=== PATIENT | female | born 1940 | race Caucasian/White ===

== ENCOUNTER 2018-02-22 16:29 | Observation (INO) | payer MEDICARE, OTHER ==
[~2018-02-22] VITALS: Ht 152.4 cm; Wt 117.9 kg
[~2018-02-22 16:29] MED LIST changes: -GLUC-139 PO
[2018-02-22] MEDS ORDERED: IBUP-56 PO (16:56)
[2018-02-22] MEDS ORDERED: GLUC-139 PO (16:56)
[2018-02-22 17:13] VITALS: BP 192/90
[2018-02-22] MEDS ORDERED: ACETAMINOPHEN 325 MG TAB PO PRN (17:25)
[2018-02-22] MEDS ORDERED: ALBUTEROL SULFATE 90 MCG/ACT 8.5 GM HNH INH PRN (17:25)
--- NOTE | 2018-02-22 18:01 | History & Physical ---
History of Present Illness Chief Complaint "I get worn out" History of Present Illness 77yo female with PMHx significant for long-standing oxygen dependent COPD, HTN, type 2 DM, chronic lower extremity edema, untreated severe KAUR. She reports increasing dyspnea on exertion over past several weeks. She has also noted a five pound weight gain and increasing lower extremity edema. She denies any CP or palpitations. She denies orthopnea/PND. She denies any fevers or chills. She has had some occasional cough, but no sputum production. She has been seen in the outpatient frequently regarding her BP control. Her lisinopril dose has recently been modified. She is also on carvedilol 12.5mg BID and Edecrin 100mg daily. She has had adverse reaction to multiple medications. She was seen in the clinic again today and found to be significantly hypertensive. She was also found to have an elevated BNP. She was recommended for admission. History Problems: (1) History of knee replacement Status: Resolved (2) Venous ulcer of both lower extremities with varicose veins Status: Resolved (3) Hypertension Status: Chronic (4) Pneumonia Status: Resolved (5) Urinary incontinence Status: Chronic (6) Hearing loss Status: Chronic (7) Arthritis Status: Chronic (8) Hypoxemia Status: Chronic (9) Glaucoma Status: Chronic (10) Obesity Status: Chronic (11) Brain aneurysm Status: Chronic (12) History of melanoma Status: Chronic (13) Traumatic hematoma of left knee Status: Resolved (14) COPD (chronic obstructive pulmonary disease) Status: Chronic (15) Type II diabetes mellitus Status: Chronic (16) Edema Status: Chronic (17) S/P lumbar fusion Status: Chronic (18) History of cataract extraction Status: Chronic (19) History of shoulder surgery Status: Chronic (20) History of cornea transplant Status: Chronic (21) History of hysterectomy for cancer Status: Chronic Home Meds Active Scripts Lisinopril (LISINOPRIL) 40 Mg Tablet, 1 TAB PO QDAY, #90 TAB 0 Refills Prov:PEACE RUDD APRN PUMP OPERATOR-C 02/15/18 Ethacrynic Acid (EDECRIN) 25 Mg Tablet, 4 TAB PO DAILY, #360 TAB 4 Refills Prov:PEACE RUDD APRN PUMP OPERATOR-C 01/29/18 Metformin Hcl (METFORMIN HCL) 500 Mg Tablet, 2 TAB PO QHS, #180 TAB 1 Refill Prov:PEACE RUDD [facility] 11/21/17 Carvedilol (CARVEDILOL) 12.5 Mg Tablet, 1 TAB PO BID, #180 TAB 3 Refills Prov:OJVENKATAPEACE APRN [facility]-C 02/15/17 Albuterol Sulfate (VENTOLIN HFA) 18 Gm Inh, 2 PUFF INH BID Y for shortness of breath, #3 INH 3 Refills Prov:PEACE RUDD APRN [facility] 03/21/16 Reported Medications Ibuprofen (IBUPROFEN) 200 Mg Tablet, 2 TAB PO QAM, TAB 02/22/18 Gluc Hcl/Csa/Fariha Hy/Hyalur Ac (GLUCOSAMINE CHONDROITIN CAP) 1 Each Capsule, 1 EACH PO QDAY, CAPSULE 02/22/18 Umeclidinium Brm/Vilanterol Tr (Anoro Ellipta 62.5-25 Mcg INH) 1 Each Disk.w.dev , 1 INH INH BID 10/19/17 Magnesium Oxide (MAGNESIUM OXIDE) 400 Mg Tablet, 250 MG PO BID 05/25/17 Calcium Carbonate/Vitamin D3 (CALCIUM + VITAMIN D TABLET) 1 Each Tablet, 1 TAB PO QDAY 07/21/15 Multivitamins,Therapeutic (THERA-TABS) 1 Each Tablet, 1 TAB PO QDAY 06/17/15 Fluorometholone (FLUOROMETHOLONE) 5 Ml Drops.susp, 1 GTT OU QDAY once a day 08/06/14 Timolol Maleate (TIMOLOL MALEATE) 10 Ml Drops, 1 GTT OU BID 07/28/14 Discontinued Scripts Lisinopril (LISINOPRIL) 20 Mg Tablet, 1 TAB PO QDAY, #90 TAB 3 Refills Prov:OJ-PEACE JUSTICE APRN [facility] 02/15/17 Allergies: Coded Allergies: Sulfa (Sulfonamide Antibiotics) (Verified Allergy, Severe, HIVES, 03/22/17) cephalexin (Verified Allergy, Severe, HIVES, 03/22/17) clavulanic acid (Verified Allergy, Severe, NAUSEA/VOMITING, 03/22/17) clindamycin (Verified Allergy, Intermediate, rash and itching, 03/22/17) furosemide (Verified Allergy, Intermediate, HIVES, 03/22/17) hydrochlorothiazide (Verified Allergy, Mild, RASH, 03/22/17) tolterodine (Verified Allergy, Unknown, rash and hives, 03/22/17) amlodipine (Verified Adverse Reaction, Intermediate, 03/22/17) severe peripheral edema spironolactone (Verified Adverse Reaction, Intermediate, 03/22/17) hyperkalemia Patient History: FH: HTN (hypertension) BROTHER OR SISTER, Age:78 BROTHER OR SISTER, Age:79 BROTHER OR SISTER, Age:59 FH: HTN (hypertension) BROTHER OR SISTER, Age:78 BROTHER OR SISTER, Age:79 BROTHER OR SISTER, Age:59 FH: congestive heart failure BROTHER OR SISTER, Age:78 FH: diabetes mellitus MOTHER, , Age:88 FH: obesity BROTHER OR SISTER, Age:78 BROTHER OR SISTER, Age:79 BROTHER OR SISTER, Age:59 Other Social/Family Hx She is and lives alone Hx Smoking: Yes (Quit in 2003, 11/07 PPD) Smoking Status: Former Smoker Exposure to Second Hand Smoke?: No Caffeine Intake: Coffee Caffeine/Cups Per Day: 4 CUPS PER DAY Hx Alcohol Use: Yes Hx Substance Use Disorder: No Social Drug Use: Never Review of Systems Constitutional: Weight Gain, No Fever, No Chills, No Night Sweats Neurological: No Syncope Eyes: No Vision Change, No Loss of Vision ENT: Sinus Congestion, No Hearing Loss Cardiovascular: No Chest Pain, No Palpitations Respiratory: Shortness of Breath, Cough Gastrointestinal: No Nausea, No Vomiting, No Diarrhea, No Hematemesis, No Hematochezia, No Melena, No Abdominal Pain Genitourinary: No Dysuria Musculoskeletal: Pain, Impaired Mobility Psychiatric: No Depression Exam Vital Signs Vital Signs Date Time Temp Pulse Resp B/P (MAP) Pulse Ox O2 Delivery O2 Flow Rate FiO2 02/22/18 17:13 98.5 60 18 192/90 (124) 100 Nasal Cannula 2.0 General Appearance: Alert, Awake Neuro: No Gross deficits Eyes: PERRLA ENT: Oropharynx Clear Neck: No Masses, Other (short/thick/serna/difficult to assess for JVD) Cardiovascular: Regular Rate and Rhythm (distant tones) Respiratory: Other (decreased breath sounds bilaterally/no rales or wheezes noted) Chest: No Tenderness GI: Abd Soft and Non-Tender (obese) : No CVA Tenderness Lymph: No Adenopathy Extremities: Warm, Perfused, Edema (2+ both LE to just above knees) Integumentary: Generalized Fragile Skin Psych: Alert & Oriented X3 Medical Decision Making Data Points Item Value Date Time Sodium Level 140 mmol/L 02/22/18 1434 Potassium Level 4.6 mmol/L 02/22/18 1434 Chloride Level 103 mmol/L 02/22/18 1434 Carbon Dioxide Level 24 mmol/L 02/22/18 1434 Blood Urea Nitrogen 31 mg/dl H 02/22/18 1434 Creatinine 0.90 mg/dl 02/22/18 1434 Glomerular Filtration Rate Calc > 60.0 02/22/18 1434 Random Glucose 84 mg/dl 02/22/18 1434 Calcium Level 9.6 mg/dl 02/22/18 1434 Magnesium Level 2.1 mg/dl 02/22/18 1434 Total Bilirubin 0.8 mg/dl 02/22/18 1434 Aspartate Amino Transf (AST/SGOT) 36 U/L H 02/22/18 1434 Alanine Aminotransferase (ALT/SGPT) 37 U/L 02/22/18 1434 Alkaline Phosphatase 91 U/L 02/22/18 1434 Total Protein 6.8 gm/dl 02/22/18 1434 Albumin 3.7 g/dl 02/22/18 1434 B-Type Natriuretic Peptide 698 pg/ml H 02/22/18 1434 White Blood Count 8.0 k/uL 02/22/18 1434 Hemoglobin 12.8 g/dL 02/22/18 1434 Hematocrit 38.7 % 02/22/18 1434 Platelet Count 188 K/uL 02/22/18 1434 EKG / Imaging Imaging PATIENT NAME: Miriam John : 1940 MR: [id number] V: [id number] EXAM DATE: ORDERING PHYSICIAN: KAROLINE ADAMS TECHNOLOGIST: Location: [facility] - [place] Patient: Miriam John : 1940 Visit/Account:[id number] Date of Sevice: 02/22/2018 Exam type: CHEST PA AND LAT History: increased SOB, decreased stamina, increased O2 Comparison: November 08, 2016. Findings: Chronic interstitial markings are seen throughout the lungs. 1.4 cm nodular density projecting in the left mid to upper lung zone also appears stable. There is no evidence of acute appearing infiltrates , pleural effusions or overt pulmonary edema. There is flattening the hemidiaphragms which can be seen with hyperinflation. Cardiac silhouette is upper limits of normal in size. There are bilateral shoulder arthroplasties. There are postsurgical changes of the lumbar spine which are incompletely imaged. Dense chronic changes also noted in the upper lumbar spine IMPRESSION: 1. Chronic interstitial markings of the lungs 1.4 centers meter nodular density projecting over the left mid to upper lung zone appears stable Flattening the hemidiaphragms consistent with hyperinflation Report Dictated By: Carlyn Malone MD at 02/22/2018 3:34 PM Report E-Signed By: Carlyn Maolne MD at 02/22/2018 3:39 PM WSN:[email or web address] Assessment and Plan Problems: (1) Dyspnea Status: Acute Assessment & Plan: This may be multifactorial. She certainly has underlying COPD, but she does not appear to have an acute exacerbation. She has severe sleep apnea that has not been treated. I suspect she probably has pulmonary HTN at this point. Will check echocardiogram. Will try to initiate CPAP tonight. Will continue supplemental oxygen at 2L and have her increase to 4L with activity. Further evaluation and treatment pending results. (2) Uncontrolled hypertension Status: Acute Assessment & Plan: Her BPs have been significantly more difficult to control. Will continue her carvedilol, lisinopril, and Edecrin. May need to further titrate her doses or add another agent. If she is able to treat her KAUR with CPAP/O2 it may help with control of her BPs as well. Central Venous Access Medical Necessity for Access: IV Access, Medication Administration Copies to: PEACE RUDD APRN PUMP OPERATOR-C Venous Thromboembolism Antithrombotics Is Pt On Any Antithrombotics?: No (CHARLEY hose and ambulation) KELLY SHETTY MD Feb 22, 2018 18:01
[2018-02-22] MEDS ORDERED: INSULIN HUM LISPRO 100 UN/ML 3 ML VIAL SUBQ PRN (18:05)
[2018-02-22 20:25] VITALS: BP 186/59
[2018-02-22] MEDS: LISINOPRIL 20 MG TAB PO SCH (20:40)
[2018-02-22] MEDS: CARVEDILOL 6.25 MG TAB PO SCH (20:40)
[2018-02-22] MEDS: PATIENT'S OWN MED INH SCH (20:40)
[2018-02-22] MEDS: TIMOLOL MAL 0.25% OP SOLN 5 ML OU SCH (20:40)
[2018-02-22] MEDS ORDERED: metFORMIN HCL 500 MG TAB PO SCH (21:00)
[2018-02-23 00:40] VITALS: BP 154/55
[2018-02-23 02:39] VITALS: BP 146/51
[2018-02-23 06:17] LABS: PLATELET COUNT, AUTOMATED 152 K/uL (150-450)
[2018-02-23 07:19] VITALS: BP 148/56
[2018-02-23 07:31] VITALS: Ht 152.4 cm; Wt 117.9 kg
[2018-02-23] MEDS ORDERED: CALCIUM CARBONATE/VITAMIN D3 PO SCH (08:00)
[2018-02-23] MEDS: CARVEDILOL 6.25 MG TAB PO SCH (08:43)
[2018-02-23] MEDS: LISINOPRIL 20 MG TAB PO SCH (08:43)
[2018-02-23] MEDS: TIMOLOL MAL 0.25% OP SOLN 5 ML OU SCH (08:44)
[2018-02-23] MEDS: PATIENT'S OWN MED INH SCH (08:47)
[2018-02-23] MEDS ORDERED: FLUOROMETHOLONE 0.1% OP SUSP OU SCH (09:00)
[2018-02-23] MEDS ORDERED: PATIENT'S OWN MED PO SCH (09:00)
[2018-02-23] MEDS ORDERED: MAGNESIUM OXIDE 400 MG TAB PO SCH (09:00)
--- NOTE | 2018-02-23 09:35 | Hospitalist Depart ---
Discharge Summary Reason for Hosp/Final Diag: (1) Dyspnea Status: Acute Hospital Course & Plan: This may be multifactorial. She certainly has underlying COPD, but she does not appear to have an acute exacerbation. She has severe sleep apnea that has not been treated. Echo shows pulmonary HTN with EF 61%. We will order for her to have CPAP at home. Will continue supplemental oxygen and have her increase to 4L with activity. (2) Uncontrolled hypertension Status: Acute Hospital Course & Plan: Will continue her carvedilol, lisinopril, and Edecrin. Her blood pressure did not require any changes during admission. If she is able to treat her KAUR with CPAP/O2 it may help with control of her BPs as well. Departure Latest Vital Signs Vital Signs 02/23/18 02/23/18 02/23/18 00:45 07:19 08:00 Temp 98.2 Pulse 67 Resp 20 B/P (MAP) 148/56 (86) Pulse Ox 94 O2 Delivery Nasal Cannula O2 Flow Rate 2.0 FiO2 30.0 Weight (Pounds): 260 Result Diagram: 02/23/18 0514 02/23/18 0514 Condition: Improved Discharge: Home, Self Care Discharge Instructions Home Meds Active Scripts Lisinopril (LISINOPRIL) 40 Mg Tablet, 1 TAB PO QDAY, #90 TAB 0 Refills Prov:PEACE RUDD APRN-C 02/15/18 Ethacrynic Acid (EDECRIN) 25 Mg Tablet, 4 TAB PO DAILY, #360 TAB 4 Refills Prov:PEACE RUDD APRN-C 01/29/18 Metformin Hcl (METFORMIN HCL) 500 Mg Tablet, 2 TAB PO QHS, #180 TAB 1 Refill Prov:PEACE RUDD APRNP-C 11/21/17 Carvedilol (CARVEDILOL) 12.5 Mg Tablet, 1 TAB PO BID, #180 TAB 3 Refills Prov:PEACE RUDD APRN-C 02/15/17 Albuterol Sulfate (VENTOLIN HFA) 18 Gm Inh, 2 PUFF INH BID Y for shortness of breath, #3 INH 3 Refills Prov:PEACE RUDD APRNP-C 03/21/16 Reported Medications Ibuprofen (IBUPROFEN) 200 Mg Tablet, 2 TAB PO QAM, TAB 02/22/18 Gluc Hcl/Csa/Fariha Hy/Hyalur Ac (GLUCOSAMINE CHONDROITIN CAP) 1 Each Capsule, 1 EACH PO QDAY, CAPSULE 02/22/18 Umeclidinium Brm/Vilanterol Tr (Anoro Ellipta 62.5-25 Mcg INH) 1 Each Disk.w.dev , 1 INH INH BID 10/19/17 Magnesium Oxide (MAGNESIUM OXIDE) 400 Mg Tablet, 250 MG PO BID 05/25/17 Calcium Carbonate/Vitamin D3 (CALCIUM + VITAMIN D TABLET) 1 Each Tablet, 1 TAB PO QDAY 07/21/15 Multivitamins,Therapeutic (THERA-TABS) 1 Each Tablet, 1 TAB PO QDAY 06/17/15 Fluorometholone (FLUOROMETHOLONE) 5 Ml Drops.susp, 1 GTT OU QDAY once a day 08/06/14 Timolol Maleate (TIMOLOL MALEATE) 10 Ml Drops, 1 GTT OU BID 07/28/14 Diet: Regular Activity: As Tolerated Copies to: PEACE RUDD APRN SCALE RECLAMATION TENDER-C Venous Thromboembolism Antithrombotics Is Pt On Any Antithrombotics?: No (CHARLEY hose and ambulation) SAMIR HOLMAN SCALE RECLAMATION TENDER Feb 23, 2018 09:35
--- NOTE | 2018-02-23 10:17 | RADIOLOGY IMAGING REPORT ---
FACILITY: [facility] PATIENT NAME: AXEL MINAYA : [id number] MR: [id number] V: [id number] EXAM DATE: ORDERING PHYSICIAN: KELLY SHETTY TECHNOLOGIST: Dionne Gonzalez EXAMINATION:TWO-DIMENSIONAL ECHOCARDIOGRAPH REASON:SOB/SUSPECTED PULMONARY HYPERTENSION 2D Measurements (normal values in centimeters) LV endLV endRV endVent.LV PostAorticLeftPercent DiastolicSystolicDiastolicSeptumWallRootAtriumShortening (3.5-5.7)(0.9-2.6)(0.6-1.1)(0.6-1.1)(2.0-3.7)(1.9-4.0)(25-35%) [id number]% STROKE VOLUME: 47ml ESTIMATED EJECTION FRACTION:61% PARASTERNAL LONG AXIS: Overall left ventricular systolic function appears to be normal. There is borderline to mild concentric left ventricular thickening but no evidence for any outflow tract obstruction. The left atrium appears to be enlarged. Right ventricle also appears to be enlarged. Color examination of the revealed some mitral insufficiency as well as some tricuspid insufficiency present. PARASTERNAL SHORT AXIS: Overall left ventricular function again appears to be normal. No wall motion abnormalities are noted. There is mild concentric left ventricular thickening present. The aortic valve is not well seen but it probably is trileaflet in configuration although difficult to tell. Color examination reveals a trace of pulmonic insufficiency. APICAL FOUR AND TWO CHAMBER: Normal left ventricular ejection fraction. Left atrium appears to be enlarged. Right ventricle also appears to be enlarged. Aortic valve area & mitral valve area both measure within normal ranges at 2.9 & 4.2cm2 respectively. The left atrial volume is mild to borderline moderately increased at 32ml/m2. Right atrial volume is upper range of normal at 24ml/m2. The tricuspid regurgitation Vmax measured 3.12m/sec. Color examination of the mitral valve reveals mild amount of mitral insufficiency. Color examination of the tricuspid valve reveals mild amount of tricuspid insufficiency. Color examination of the aortic valve was unremarkable. SUBCOSTAL VIEW: No pericardial effusion was noted. No atrioseptal or ventriculoseptal defects were noted. There is a prominent pericardial fat pad present. Doppler examination of the mitral valve in diastole does reveal the A wave > E wave. IVC is enlarged at 2.93cm. OVERALL IMPRESSION: 1. Normal left ventricular ejection fraction of 61% with a Grade 1/4 decrease in diastolic function. 2. Mild concentric left ventricular thickening. No evidence for any outflow tract obstruction. 3. Mild to moderate right ventricular enlargement & mild to moderate left atrial enlargement. The right atrium is upper range of normal in size. The left ventricle is normal in size. 4. A probable trileaflet aortic valve with no abnormalities noted. 5. A trace of pulmonic insufficiency & a mild amount of mitral & tricuspid insufficiency. The estimated right ventricular systolic pressure is approximately 61mm Hg which does include an estimated right atrial pressure of 15mm Hg indicating severe pulmonary hypertension & increased right ventricular systolic pressures. Dictated by: Irma Henriquez M.D. on 02/22/2018 at 20:15 Transcribed by: JOSE on 02/23/2018 at 7:01 Approved by: Irma Henriquez M.D. on 02/23/2018 at 10:16 [facility]
[2018-02-25] MEDS ORDERED: INFLUENZA VIRUS VAC 0.5 ML SYR IM ONLY ONE (09:00)
== END 2018-02-23 09:28 | disposition home or self-care (01) ==
LOC: INTOOBSV 16:29 → MED 16:29
PROVIDERS: ADMIT Specialist; ATTEND Specialist
DX: I10 Essential (primary) hypertension (principal); R06.00 Dyspnea, unspecified
CPT/HCPCS: 36415; 36416; 82948; 83735; 83880; 84443; 85025; 93306; 94660; A9270; G0378; G0379; J1815; 71046; 82040; 82247; 82310; 82374; 82435; 82565; 82947; 84075; 84132; 84155; 84295; 84450; 84460; 84520

== ENCOUNTER → 2018-02-22 | Outpatient (CLI) | payer MEDICARE, OTHER ==
[2014-08-07 17:08] VITALS: BMI 41.2
[~2018-02-22] MED LIST: ACE500 PO; ALB18R INH; ALIS150T3 PO; AML5 PO; AMLO-104 PO; AMLO-99 PO; AMOX500T10 PO; ASC500 PO; ASPI-1471 PO; ASPI-715 PO; ASPI81TA94 PO; ATEN-1 PO; AZIT-1 PO; AZIT-17 PO; AZIT500T47 PO; BENZ200C15 PO; BIOFLEX; CALC-515 PO; CALC-852 PO; CALC500T76 PO; CALCIUM; CAR6.25 PO; CARV12.578 PO; CARV25TA78 PO; CETI-176 PO; CLIN300C99 PO; CLOB15CR22 TP; CLOT15CR63 TP; CODE118S5 PO; COM14R INH; COMPRESSION STOCKING; DOXY-229 PO; ETHA25TA2 PO; FISH1CAP15 PO; FLUO5DRO8 OP; FLUOD OU; FLUT1DIS28 INH; FURO-45 PO; FURO-47 PO; GLUC-125 PO; GLUC-139 PO; GLUC-178 PO; HYDR-2966 PO; HYDR-385 PO; HYDR473S4 PO; IBU200 PO; IBUP-56 PO; LIDO700A29 TD; LISI-374 PO; LISI20TA29 PO; LISI30TA49 PO; MAGN250T25 PO; MAGN400T36 PO; MELO-207 PO; METF-410 PO; METF-420 PO; METF500T4 PO; MOM PO; MOXOD OD; MULT-1357 PO; MULT-820 PO; NEBI10TA4 PO; OLME40TA17 PO; OXYC20TA86 PO; OXYXL5 PO; PER PO; PIPE3.3714 IV; POTA-23 PO; PRED20TA6 PO; PYRI100T57 PO; SAL50R INH; SPIR25TA78 PO; TIM5OD OD; TIO18R INH; TRAM-420 PO; TRIA15CR40 TP; TURM500C7 PO; UBID100C9 PO; UMEC1DIS INH; VITAMIN C; VITAMIN E; VITE400 PO; [UNRECOGNIZED DRUG - CODE] OU; [UNRECOGNIZED DRUG - CODE] PO; [UNRECOGNIZED DRUG - CODE] PO; [UNRECOGNIZED DRUG - CODE] PO
[2018-02-22 14:46] LABS: PLATELET COUNT, AUTOMATED 188 K/uL (150-450)
--- NOTE | 2018-02-22 15:42 | RADIOLOGY IMAGING REPORT ---
FACILITY: [facility] PATIENT NAME: Miriam John : 1940 MR: [id number] V: [id number] EXAM DATE: ORDERING PHYSICIAN: KAROLINE ADAMS TECHNOLOGIST: Location: [facility] [place] Patient: Miriam John : 1940 Visit/Account:[id number] Date of Sevice: 02/22/2018 Exam type: CHEST PA AND LAT History: increased SOB, decreased stamina, increased O2 Comparison: November 08, 2016. Findings: Chronic interstitial markings are seen throughout the lungs. 1.4 cm nodular density projecting in th e left mid to upper lung zone also appears stable. There is no evidence of acute appearing infiltrat es , pleural effusions or overt pulmonary edema. There is flattening the hemidiaphragms which can be seen with hyperinflation. Cardiac silhouette is upper limits of normal in size. There are bilatera l shoulder arthroplasties. There are postsurgical changes of the lumbar spine which are incompletely imaged. Dense chronic changes also noted in the upper lumbar spine IMPRESSION: 1. Chronic interstitial markings of the lungs 1.4 centers meter nodular density projecting over the left mid to upper lung zone appears stable Flattening the hemidiaphragms consistent with hyperinflation Report Dictated By: Carlyn Malone MD at 02/22/2018 3:34 PM Report E-Signed By: Carlyn Malone MD at 02/22/2018 3:39 PM WSN:[email or web address]
== END ==
LOC: LAB 14:21
PROVIDERS: ATTEND Nurse Practitioner Family
DX: R91.8 Other nonspecific abnormal finding of lung field (principal); J44.9 Chronic obstructive pulmonary disease, unspecified; R68.89 Other general symptoms and signs; R09.89 Other specified symptoms and signs involving the circulatory and respiratory systems
CPT/HCPCS: 36415; 71046; 82040; 82247; 82310; 82374; 82435; 82565; 82947; 83735; 83880; 84075; 84132; 84155; 84295; 84443; 84450; 84460; 84520; 85025

== ENCOUNTER → 2018-03-01 | Outpatient (CLI) | payer MEDICARE, OTHER ==
[2018-02-23 07:31] VITALS: BMI 50.8
[~2018-03-01] MED LIST changes: +GLUC-139 PO; +HYDR10TA20 PO
== END ==
LOC: LAB 08:28
PROVIDERS: ATTEND Nurse Practitioner Family
DX: E11.9 Type 2 diabetes mellitus without complications (principal); I10 Essential (primary) hypertension
CPT/HCPCS: 36415; 82040; 82247; 82310; 82374; 82435; 82565; 82947; 84075; 84132; 84155; 84295; 84450; 84460; 84520

== ENCOUNTER → 2018-04-23 | Outpatient (CLI) | payer MEDICARE, OTHER ==
[2018-02-23 07:31] VITALS: BMI 50.8
[~2018-04-23] MED LIST changes: +LEVO750T44 PO; -METF-410 PO; +METF-411 PO; +METF-421 PO
--- NOTE | 2018-04-23 16:54 | RADIOLOGY IMAGING REPORT ---
FACILITY: [facility] PATIENT NAME: Miriam John : 1940 MR: [id number] V: [id number] EXAM DATE: ORDERING PHYSICIAN: GUILLERMO GIBSON TECHNOLOGIST: Location: [facility] Patient: Miriam John : 1940 Visit/Account:[id number] Date of Sevice: 04/23/2018 2 Exam type: CHEST PA AND LAT History: Shortness of breath Comparison: February 22, 2018. Findings: Chronic interstitial markings again noted throughout the lungs. There is mild blunting of the costop hrenic angles and subtle increase in peribronchial markings in the lung bases when compared the prior study which could represent an acute infectious/inflammatory process. The 1.4 cm nodule in the left mid to upper lung zone appears unchanged. Cardiac silhouette is upper limits of normal in size but unchanged. Bilateral shoulder arthroplasties again noted in addition to postsurgical changes of the lumbar spine IMPRESSION: 1. Chronic interstitial markings again seen throughout the lungs Blunted costophrenic angles bilaterally and mild increase in peribronchial markings the lower lung fi elds which could represent an acute infectious/inflammatory process. Report Dictated By: Carlyn Malone MD at 04/23/2018 4:45 PM Report E-Signed By: Carlyn Malone MD at 04/23/2018 4:49 PM WSN:[email or web address]
== END ==
LOC: RAD 15:14
PROVIDERS: ATTEND Internal Medicine
DX: R91.8 Other nonspecific abnormal finding of lung field (principal); Z96.612 Presence of left artificial shoulder joint; Z96.611 Presence of right artificial shoulder joint; Z96.7 Presence of other bone and tendon implants
CPT/HCPCS: 71046

== ENCOUNTER → 2018-05-23 | Outpatient (CLI) | payer MEDICARE, OTHER ==
[2018-02-23 07:31] VITALS: BMI 50.8
[~2018-05-23] MED LIST changes: +MIRA25TA PO; +SPIR25TA80 PO
[2018-05-23 11:44] LABS: PLATELET COUNT, AUTOMATED 202 K/uL (150-450)
== END ==
LOC: LAB 11:08
PROVIDERS: ATTEND Nurse Practitioner Family
DX: E11.9 Type 2 diabetes mellitus without complications (principal); I10 Essential (primary) hypertension; R60.9 Edema, unspecified
CPT/HCPCS: 36415; 82040; 82247; 82310; 82374; 82435; 82465; 82565; 82947; 83036; 83718; 84075; 84132; 84155; 84295; 84443; 84450; 84460; 84478; 84520; 85025

== ENCOUNTER → 2018-05-31 | Outpatient (CLI) | payer MEDICARE, OTHER ==
[2018-02-23 07:31] VITALS: BMI 50.8
[~2018-05-31] MED LIST changes: +ATOR20TA65 PO; +HYDR25TA66 PO
== END ==
LOC: RESP 20:46
PROVIDERS: ATTEND Internal Medicine
DX: G47.33 Obstructive sleep apnea (adult) (pediatric) (principal); G47.36 Sleep related hypoventilation in conditions classified elsewhere

== ENCOUNTER → 2018-06-05 | Outpatient (CLI) | payer MEDICARE, OTHER ==
[2018-02-23 07:31] VITALS: BMI 50.8
== END ==
LOC: LAB 09:57
PROVIDERS: ATTEND Nurse Practitioner Family
DX: E78.5 Hyperlipidemia, unspecified (principal)
CPT/HCPCS: 36415; 82465; 83718; 84478

== ENCOUNTER → 2018-08-14 | Outpatient (CLI) | payer MEDICARE, OTHER ==
[2018-02-23 07:31] VITALS: BMI 50.8
[~2018-08-14] MED LIST changes: +AMLO-113 PO; -AMLO-99 PO; -METF-411 PO; -METF-421 PO; +METF-450 PO; +METF-452 PO
== END ==
LOC: LAB 16:05
PROVIDERS: ATTEND Nurse Practitioner Family
DX: R25.2 Cramp and spasm (principal)
CPT/HCPCS: 36415; 82040; 82247; 82310; 82374; 82435; 82565; 82947; 83735; 84075; 84132; 84155; 84295; 84450; 84460; 84520

== ENCOUNTER → 2019-03-15 | Outpatient (CLI) | payer MEDICARE, OTHER ==
[2018-02-23 07:31] VITALS: BMI 50.8
[~2019-03-15] MED LIST changes: -AMLO-113 PO; +AMLO-127 PO
[2019-03-15 16:25] LABS: PLATELET COUNT, AUTOMATED 237 K/uL (150-450)
== END ==
LOC: LAB 15:44
PROVIDERS: ATTEND Nurse Practitioner Family
DX: M79.10 Myalgia, unspecified site (principal); Z79.899 Other long term (current) drug therapy
CPT/HCPCS: 36415; 82040; 82247; 82310; 82374; 82435; 82565; 82947; 83735; 84075; 84132; 84155; 84295; 84443; 84450; 84460; 84520; 85025

== ENCOUNTER → 2019-04-22 | Outpatient (CLI) | payer MEDICARE, OTHER ==
[2018-02-23 07:31] VITALS: BMI 50.8
--- NOTE | 2019-04-22 17:05 | RADIOLOGY IMAGING REPORT ---
FACILITY: [facility] - [place] PATIENT NAME: Miriam John : 1940 MR: [id number] V: [id number] EXAM DATE: ORDERING PHYSICIAN: CHET ENGEL TECHNOLOGIST: Location: [facility] Patient: Miriam John : 1940 Visit/Account:[id number] Date of Sevice: 04/22/2019 Technique: KNEE 4 VIEW RIGHT HISTORY: Twisting injury one week ago, right knee pain Comparison studies: None FINDINGS: There is no acute fracture. Noted is a right knee arthroplasty. The alignment of the arth roplasty is preserved. No significant knee joint effusion. IMPRESSION: 1. Right knee arthroplasty without evidence of hardware complication. Report Dictated By: Tod Drake DO at 04/22/2019 4:50 PM Report E-Signed By: oTd Drake DO at 04/22/2019 4:59 PM WSN:[email or web address]
== END ==
LOC: RAD 16:03
PROVIDERS: ATTEND Nurse Practitioner Primary Care
DX: M25.561 Pain in right knee (principal)
CPT/HCPCS: 73564

== ENCOUNTER → 2019-05-01 | Outpatient (CLI) | payer MEDICARE, OTHER ==
[2018-02-23 07:31] VITALS: BMI 50.8
[2019-05-01 16:24] LABS: PLATELET COUNT, AUTOMATED 226 K/uL (150-450)
== END ==
LOC: LAB 15:58
PROVIDERS: ATTEND Nurse Practitioner Family
DX: D72.821 Monocytosis (symptomatic) (principal)
CPT/HCPCS: 36415; 85025

== ENCOUNTER → 2019-05-27 | Outpatient (CLI) | payer MEDICARE, OTHER ==
[2018-02-23 07:31] VITALS: BMI 50.8
[~2019-05-27] MED LIST changes: +VARI50KI IM
[2019-05-27 10:53] LABS: PLATELET COUNT, AUTOMATED 191 K/uL (150-450)
== END ==
LOC: LAB 10:25
PROVIDERS: ATTEND Nurse Practitioner Family
DX: R73.01 Impaired fasting glucose (principal); E78.5 Hyperlipidemia, unspecified; I10 Essential (primary) hypertension
CPT/HCPCS: 36415; 82040; 82247; 82310; 82374; 82435; 82465; 82565; 82947; 83718; 84075; 84132; 84155; 84295; 84443; 84450; 84460; 84478; 84520; 85025